=== PATIENT | male | born 1945 | race Asian ===

== ENCOUNTER → 2018-03-19 | Outpatient (CLI) | payer OTHER ==
[~2018-03-19] MED LIST: IOPAMIDOL (ISOVUE 370) 100 ML BTL IV ONE
== END ==
LOC: FIMAGING 09:15
PROVIDERS: ATTEND Internal Medicine Interventional Cardiology
DX: Z98.890 Other specified postprocedural states (principal); N28.89 Other specified disorders of kidney and ureter; Z95.828 Presence of other vascular implants and grafts
CPT/HCPCS: 71275; Q9967; 82565-PO

== ENCOUNTER → 2018-03-29 | Outpatient (CLI) | payer OTHER ==
[~2018-03-29] MED LIST changes: -IOPAMIDOL (ISOVUE 370) 100 ML BTL IV ONE; +IOPAMIDOL (ISOVUE-300) 100 ML BTL ONE
== END ==
LOC: FIMAGING 13:12
PROVIDERS: ATTEND Family Medicine
DX: N28.89 Other specified disorders of kidney and ureter (principal); I70.0 Atherosclerosis of aorta; I72.3 Aneurysm of iliac artery; K57.30 Diverticulosis of large intestine without perforation or abscess without bleeding
CPT/HCPCS: 74178; Q9967; 82565-PO

== ENCOUNTER 2018-05-25 09:25 | Day surgery (SDC) | payer OTHER ==
[2018-05-25] MEDS ORDERED: FLUMAZENIL 0.5 MG/5 ML MDV IVP PRN (09:55)
[2018-05-25] MEDS ORDERED: MIDAZOLAM 2 MG/2 ML VIAL IVP PRN (09:55)
[2018-05-25] MEDS ORDERED: NALOXONE HCL 0.4 MG/ML INJ IVP PRN (09:55)
[2018-05-25] MEDS ORDERED: fentaNYL 100 MCG/2 ML INJ IVP PRN (09:55)
[2018-05-25] MEDS ORDERED: NS 1,000 ML IV SCH (10:00)
--- NOTE | 2018-05-25 11:01 | PDANEPAE ---
ANE History of Present Illness here for microwave renal mass ablation ANE Past Medical History - Cardiovascular History Hx Hypertension: Yes Hx Arrhythmias: No Hx Chest Pain: No Hx Coronary Artery / Peripheral Vascular Disease: Yes Hx CHF / Valvular Disease: No Hx Palpitations: No Cardiovascular History Comment: htn recently. hyperlipidemia. ascending thoracic aortic aneurysm. 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 facial surgery in [facility] ANE Review of Systems Review of systems is: negative Review of Systems: - Exercise capacity Exercise capacity: >=4 METS METS (RN): 6 METS ANE Patient History - Allergies Allergies/Adverse Reactions: hydrocodone Allergy (Verified 10/23/14 08:13) tramadol Allergy (Verified 10/23/14 08:14) - Home Medications Home medications: home medication list seen and reviewed Home Medications: Allopurinol [Allopurinol 300 MG (RX)] 300 mg PO DAILY 10/31/14 [Last Taken 10/27] Ascorbic Acid [Vitamin C 250 mg (*)] 1,000 mg PO DAILY 10/31/14 [Last Taken 11/29] Aspirin [Aspirin 81mg (*)] 81 mg PO DAILY 10/31/14 [Last Taken 10/31/14] Atorvastatin Calcium [Lipitor 10 mg (*)] 10 mg PO DAILY 10/31/14 [Last Taken 05/01] Cholecalciferol Vit D3 [Vitamin D3 (*)] 1,000 units PO DAILY 10/31/14 [Last Taken 10/22/14] Herbals/Supplements -Info Only 1 ea PO DAILY 10/31/14 [Last Taken Unknown] Hydrochlorothiazide [HCTZ (*)] 12.5 mg PO DAILY 10/31/14 [Last Taken 10/27/14] Multivitamin with Minerals [Multiple Vitamin] 1 each PO DAILY 10/31/14 [Last Taken Unknown] [place]-3 Fatty Acids [Fish Oil 1000 mg (*)] 2,400 mg PO DAILY 10/31/14 [Last Taken Unknown] Potassium Citrate [Urocit-K 10meq (*)] 10 meq PO DAILY 10/31/14 [Last Taken 05/01] Sildenafil Citrate [Revatio 20 MG (*)] 20 mg PO BID 05/20/18 [Last Taken Unknown ] - Smoking Hx Smoking Status: Never smoked - Family Anes Hx Family Hx Anesthesia Complications: none ANE Labs/Vital Signs - Labs Result Diagrams: 05/25/18 10:30 - Vital Signs Vital Signs: reviewed preoperatively; see RN documention for details Blood Pressure: 130/70 Heart Rate: 73 Respiratory Rate: 14 O2 Sat (%): 94 Height: 185.42 cm Weight: 88.451 kg
[2018-05-25] MEDS ORDERED: SUCCINYLCHOLINE CHLORIDE 200 MG/10 ML VIAL ONE ×2 (11:29→11:40)
[2018-05-25] MEDS ORDERED: PROPOFOL/EMULSION 500 MG/50 ML BOTTLE IV ONE (11:31)
[2018-05-25] MEDS ORDERED: PROPOFOL 200 MG/20 ML VIAL ONE (11:31)
[2018-05-25] MEDS ORDERED: LIDOCAINE 1% 300 MG/30 ML SDV ONE (11:34)
[2018-05-25] MEDS ORDERED: ROCURONIUM 100 MG/10 ML VIAL ONE (11:40)
[2018-05-25] MEDS ORDERED: SUGAMMADEX SODIUM 200 MG/2 ML VIAL IVP ONE (11:45)
[2018-05-25] MEDS ORDERED: fentaNYL 100 MCG/2 ML INJ ONE (11:49)
[2018-05-25 11:50] LABS: PLATELET COUNT 169 10^3/uL (150-400)
[2018-05-25 11:51] LABS: INR 1.01 (0.83-1.16); PROTIME(PATIENT) 13.5 SEC (12.0-15.0)
--- NOTE | 2018-05-25 13:40 | POSTANESTH ---
Post Anesthetic Evaluation Cardiovascular Status: Normal, Stable Respiratory Status: Normal, Stable Level of Consciousness/Mental Status: Mildly Sleepy, Arousable Pain Control: Adequate, Prn Tx Ordered Nausea/Vomiting Control: Adequate, Prn Tx Ordered Complications Possibly Related to Anesthesia: None Noted
[2018-05-25] MEDS ORDERED: ACETAMINOPHEN 325 MG TAB PO PRN (13:47)
[2018-05-25] MEDS ORDERED: ONDANSETRON 4 MG/2 ML VIAL IVP PRN (13:47)
--- NOTE | 2018-05-25 13:49 | PDGENHP ---
History & Physical Chief Complaint: LEFT RENAL MASS History of Present Illness: PATIENT HAS AN INCIDENTALLY FOUND UPPER LEFT RENAL MASS, 1.5CM. ABLATIIVE TREATMENT PREFERRED RATHER THAN SURGERY. Pertinent Past, Social, Family History: NON SMOKER. Relevant Physical Exam: IN NO DISTRESS. Cardiorespiratory Assessment: RRR, CTA.
--- NOTE | 2018-05-25 13:51 | PDRADPN ---
Radiology Procedure Note Date of Procedure: 05/25/18 Radiologist: Clarisa Dean Pre-op Diagnosis: LEFT RENAL MASS Post-op Diagnosis: SAME Indication: MICROWAVE ABLATION FOR TREATMENT Procedure: BIOPSY, MICROWAVE ABLATION Finding(s): ABLATION ZONE COVERED THE ENTIRETY OF THE LESION. BIOPSY DONE. PATHOLOGY PENDING. Inf/Abcess present in the surg proc area at time of surgery?: No
[2018-05-25 15:58] VITALS: BP 124/74
== END 2018-05-25 15:52 | disposition home or self-care (01) ==
LOC: FIMAGING 09:25
PROVIDERS: ATTEND Radiology Diagnostic Radiology
PROC: 0T513ZZ Destruction of Left Kidney, Percutaneous Approach (ICD-10-PCS; principal; 2018-05-25 11:30)
PROC: BT2 Imaging, Urinary System, Computerized Tomography (CT Scan) (ICD-10-PCS; principal; 2018-05-25 11:30)
PROC: 0TB13ZX Excision of Left Kidney, Percutaneous Approach, Diagnostic (ICD-10-PCS; principal; 2018-05-25 11:30)
DX: N28.89 Other specified disorders of kidney and ureter (principal); I10 Essential (primary) hypertension; E78.5 Hyperlipidemia, unspecified; I71.2 Thoracic aortic aneurysm, without rupture; I25.10 Atherosclerotic heart disease of native coronary artery without angina pectoris; Z87.442 Personal history of urinary calculi; Z95.1 Presence of aortocoronary bypass graft
CPT/HCPCS: J0330; J0690; J2704; J3010

== ENCOUNTER → 2018-06-01 | Outpatient (CLI) | payer OTHER | LOC: FIMAGING 11:26 | PROVIDERS: ATTEND Family Medicine | DX: R60.0 Localized edema (principal) ==

== ENCOUNTER 2018-06-14 12:58 | Emergency (ER) | payer OTHER ==
--- NOTE | 2018-06-14 13:50 | EDPHY ---
H & P Stated Complaint: SAT PT BECAME DIZZY AND FELL HITTING HEAD/DOUBLE VISION/ DIZZY SINCE/SAW OP Time Seen by Provider: 06/14/18 13:39 HPI/ROS: CHIEF COMPLAINT: Headache, head trauma, diplopia HISTORY OF PRESENT ILLNESS: The patient presents the ED with diplopia, headache following a fall several days ago. The patient recently had cataract surgery on his left eye. He had been recovering uneventfully. The patient had an episode of dizziness on Thursday which precipitated a fall. The patient landed on his occipital scalp. Since that time the patient has had diplopia. 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 In the emergency department the patient continues to complain of a binocular diplopia. The patient reports his symptoms are worse when looking down. His diplopia appears to extinguished with upward gaze. The patient does complain of a mild headache. He also complains of some posterior neck pain. REVIEW OF SYSTEMS: A comprehensive 10 point review of systems is otherwise negative aside from elements mentioned in the history of present illness. Source: Patient, Family - Personal History Current Tetanus Diphtheria and Acellular Pertussis (TDAP): Yes - Medical/Surgical History Hx Asthma: No Hx Chronic Respiratory Disease: No Hx Diabetes: No Hx Cardiac Disease: Yes Hx Renal Disease: No Hx Cirrhosis: No Hx Alcoholism: No Hx HIV/AIDS: No Hx Splenectomy or Spleen Trauma: No Other PMH: TRIPLE BYPASS/ANEURYSM EYE SURGERYCATARACT/ VITRECTOMY - Social History Smoking Status: Never smoked - Physical Exam Exam: General Appearance: Alert, no distress Head: Atraumatic Eyes: Postsurgical changes noted to the left eye, EOMI, diplopia binocular which appears to extinguished per patient with upward gaze ENT, Mouth: No hemotympanum, no oral trauma Neck: Tenderness to palpation noted in the mid cervical spine Respiratory: No chest wall tender, no subcutaneous air, lungs clear bilaterally Cardiovascular: Regular rate and rhythm Abdomen: Abdomen is soft and nontender, pelvis stable Skin: No lacerations, No abrasion Back: No midline T/L/S pain Extremities: Nontender, full range of motion Neurological: A&Ox3, normal motor function, normal sensory exam Constitutional: Initial Vital Signs Temperature (C) 36.6 C 06/14/18 13:08 Heart Rate 75 01/28/19 13:08 Respiratory Rate 18 06/14/18 13:08 Blood Pressure 124/85 H 06/14/18 13:08 O2 Sat (%) 95 06/14/18 13:08 O2 Delivery Mode Room Air Allergies/Adverse Reactions: hydrocodone Allergy (Verified 10/23/14 08:13) tramadol Allergy (Verified 10/23/14 08:14) Home Medications: Medication Instructions Recorded Allopurinol [Allopurinol 300 MG 300 mg PO DAILY 10/31/14 (RX)] Ascorbic Acid [Vitamin C 250 mg 1,000 mg PO DAILY 10/31/14 (*)] Aspirin [Aspirin 81mg (*)] 81 mg PO DAILY 10/31/14 Atorvastatin Calcium [Lipitor 10 10 mg PO DAILY 10/31/14 mg (*)] Cholecalciferol Vit D3 [Vitamin D3 1,000 units PO DAILY 10/31/14 (*)] Herbals/Supplements -Info Only 1 ea PO DAILY 10/31/14 Hydrochlorothiazide [HCTZ (*)] 12.5 mg PO DAILY 10/31/14 Multivitamin with Minerals 1 each PO DAILY 10/31/14 [Multiple Vitamin] [place]-3 Fatty Acids [Fish Oil 1000 2,400 mg PO DAILY 10/31/14 mg (*)] Potassium Citrate [Urocit-K 10meq 10 meq PO DAILY 10/31/14 (*)] Sildenafil Citrate [Revatio 20 MG 20 mg PO BID 05/20/18 (*)] Medical Decision Making - Diagnostics Imaging Results: Imaging Impressions Cervical Spine CT 06/14/18 13:39 Impression: Intracranial edema without hemorrhage. This is somewhat atypical for trauma. Consider MRI without and with contrast for further evaluation. 2. CT Cervical Spine Without Contrast, 1:39 PM History: Trauma. Fall on Thursday. Technique: Multi-slice ultrathin single breath-hold helical CT through the neck from the skull base through the thoracic inlet without contrast. Soft tissue and bone window evaluation is performed. Sagittal and coronal reconstructions are obtained. Dose reduction techniques were utilized. Findings: Alignment is anatomic. No fracture or dislocation is identified. Disk spaces are well maintained. There are moderate disk bulges at multiple levels. There is a vacuum phenomenon in the anterior aspect of the CC 5-C6 disk space. There is incomplete calcification of the anterior longitudinal ligament between C4 and C7. Facets are normally aligned and are intact. The skull base - C1 and C1-C2 relationships are normal. The odontoid process is intact. There is no evidence of a prevertebral or epidural hematoma. The cervical thoracic junction is normally aligned. There are nuchal ligament ossifications posterior to the spinous processes of C5 and C6. There is ossification of the ligament between the spinous processes of T2 and T3. Impression: No posttraumatic abnormality identified. Final concordant results discussed with Dr. Everton Jackson at 2:28 PM. General information for patients regarding this examination can be found at [employer]. If you have questions or comments about this report, please contact me at [phone](hospital) or [phone] (cell). Head CT 06/14/18 13:39 Impression: Intracranial edema without hemorrhage. This is somewhat atypical for trauma. Consider MRI without and with contrast for further evaluation. 2. CT Cervical Spine Without Contrast, 1:39 PM History: Trauma. Fall on Thursday. Technique: Multi-slice ultrathin single breath-hold helical CT through the neck from the skull base through the thoracic inlet without contrast. Soft tissue and bone window evaluation is performed. Sagittal and coronal reconstructions are obtained. Dose reduction techniques were utilized. Findings: Alignment is anatomic. No fracture or dislocation is identified. Disk spaces are well maintained. There are moderate disk bulges at multiple levels. There is a vacuum phenomenon in the anterior aspect of the CC 5-C6 disk space. There is incomplete calcification of the anterior longitudinal ligament between C4 and C7. Facets are normally aligned and are intact. The skull base - C1 and C1-C2 relationships are normal. The odontoid process is intact. There is no evidence of a prevertebral or epidural hematoma. The cervical thoracic junction is normally aligned. There are nuchal ligament ossifications posterior to the spinous processes of C5 and C6. There is ossification of the ligament between the spinous processes of T2 and T3. Impression: No posttraumatic abnormality identified. Final concordant results discussed with Dr. Everton Jackson at 2:28 PM. General information for patients regarding this examination can be found at [employer]. If you have questions or comments about this report, please contact me at (hospital) or [phone] (cell). Brain MRI 06/14/18 14:31 Impression: 1. Atypical location for posttraumatic bland edema versus low grade glioma versus subacute infarction (no longer associated with restricted diffusion). Recommend short interval follow-up MRI (in perhaps 3-4 months) to assess for resolution, stability or progression. 2. Several right hemispheric punctate hemorrhages consistent with posttraumatic shearing injuries. Results discussed with Dr. Everton Jackson at 3:58 PM. ED Course/Re-evaluation: The patient is referred to the ED for evaluation of a traumatic head injury causing diplopia. The patient was taken for noncontrast head CT scan which demonstrated no evidence of hemorrhage but did demonstrate the possibility of edema in the right frontal lobe. CT scan of the cervical spine demonstrates no evidence of an acute fracture. Radiology recommended a follow-up MRI study which was performed and does demonstrate ongoing subtle abnormalities in the right frontal lobe of uncertain significance. I spoke with the patient's regular broom worker Dr. Mckeon and reviewed the results of his MRI and CT scan. She is requested the patient be referred to Neurology for further evaluation. I consulted with Dr. Burroughs from Neurology. He reviewed the brain MRI and feels the abnormality is consistent with trauma and swelling. He recommends that the patient follow up with him as an outpatient. He will likely repeat this study in the next 1-2 months to assess for resolution. The patient has been instructed to return to the ED for the development of any new neurologic symptoms or other concerns. Differential Diagnosis: Differential diagnosis considered includes intracranial hemorrhage, DYE MAKER tumor, stroke, lens dislocation - Data Points Medications Given: Discontinued Medications Fentanyl (Sublimaze) 50 mcg IVP EDNOW ONE Stop: 06/14/18 16:07 Last Admin: 06/14/18 16:25 Dose: 50 mcg Departure - Departure Disposition: Home, Routine, Self-Care Clinical Impression: Diplopia, Headache Condition: Good Instructions: Diplopia (ED) Additional Instructions: 1. Please schedule a follow-up appointment with our neurologist Dr. Burroughs for a recheck. 2. Return to the ED for the development of any new neurologic symptoms or other concerns. 3. Tylenol as needed for headache. Referrals: Jamshid Burroughs MD [Medical Doctor] - As per Instructions
[2018-06-14] MEDS ORDERED: GADOBUTROL 10 ML VIAL IVP ONE (15:09)
[2018-06-14] MEDS ORDERED: fentaNYL 100 MCG/2 ML INJ IVP ONE (16:06)
[2018-06-14 16:57] VITALS: BP 122/76
[2018-06-14] MEDS ORDERED: ACETAMINOPHEN 500 MG TAB ONE (17:09)
[2018-06-14] MEDS ORDERED: ACETAMINOPHEN 500 MG TAB PO ONE (17:13)
== END 2018-06-14 17:08 | disposition home or self-care (01) ==
DX: H53.2 Diplopia (principal); R51 Headache
CPT/HCPCS: 70450; 70553; 72125; 96374; 99285; A9585; J3010

== ENCOUNTER 2018-08-09 07:29 | Day surgery (SDC) | payer OTHER ==
[2018-08-09] MEDS ORDERED: LIDOCAINE 1% 300 MG/30 ML SDV SC ONE (07:35)
--- NOTE | 2018-08-09 08:37 | PDHPUP ---
History & Physical Update H&P update statement: This history and physical update is based on an assessment of the patient which was completed after admission or registration (within 24 hours), but prior to the surgery/procedure. H&P update: H&P reviewed & patient examined, no change in patient's condition since H&P completed
--- NOTE | 2018-08-09 08:59 | PDCTREPORT ---
Cardiothoracic Procedure Rpt Cardiothoracic Procedure Report: Procedure: Implantation of a loop recorder Indications: Syncope After obtaining informed consent left maricruz pectoral region was sterilely prepped and draped. 2% xylocaine was used to anesthetize the skin. Using a 10 blade a stab wound was made. Using blunt dissection and the loop recorder insertion tool a loop recorder was inserted under the skin. This is a [employer] device. 2 [place] were used to close the skin. Pressure dressings applied the patient is discharged with outpatient follow-up. Conclusions: Successful implantation of a [place] loop recorder. Follow-up wound check 1 week. Patient Problems: Problems Problem Status Onset Coronary artery disease Chronic S/P CABG x 3 Acute S/P ascending aortic replacement Acute Dyslipidemia Chronic
== END 2018-08-09 09:52 | disposition home or self-care (01) ==
LOC: FCATH 07:29
PROVIDERS: ATTEND Internal Medicine Interventional Cardiology
PROC: 0JH632Z Insertion of Monitoring Device into Chest Subcutaneous Tissue and Fascia, Percutaneous Approach (ICD-10-PCS; principal; 2018-08-09)
DX: R55 Syncope and collapse (principal); I25.10 Atherosclerotic heart disease of native coronary artery without angina pectoris; E78.5 Hyperlipidemia, unspecified; I71.2 Thoracic aortic aneurysm, without rupture
CPT/HCPCS: C1764

== ENCOUNTER → 2018-09-29 | Outpatient (CLI) | payer OTHER | LOC: FIMAGING 09:30 | PROVIDERS: ATTEND Psychiatry & Neurology Neurology | DX: S06.9X9A Unspecified intracranial injury with loss of consciousness of unspecified duration, initial encounter (principal) | CPT/HCPCS: 70551-PN ==

== ENCOUNTER → 2018-11-08 | Outpatient (CLI) | payer OTHER | LOC: FCPNEURO 10:34 ==